=== PATIENT | female | born 1995 | race Caucasian/White ===

== ENCOUNTER 2017-04-22 22:44 | Emergency (ER) | payer OTHER ==
[~2017-04-22] VITALS: Ht 160 cm; Wt 63.5 kg
[2017-04-22 22:44] VITALS: BP 118/64
[~2017-04-22 22:44] MED LIST: CLEOCIN HCL150 MG PO; MACROBID 100 M100 M1 PO; NOHOMEMEDICATIONS; PRENATAL PO
[2017-04-22] MEDS ORDERED: PRENATAL PO (22:52)
[2017-04-22 23:29] LABS: URINE BILIRUBIN NEGATIVE (Negative); URINE BLOOD NEGATIVE (Negative); URINE COLOR YELLOW; URINE GLUCOSE-RANDOM* NEGATIVE (Negative); URINE KETONES NEGATIVE (Negative); URINE NITRITE NEGATIVE (Negative); URINE PROTEIN (DIPSTICK) TRACE (Negative); URINE SPECIFIC GRAVITY 1.015 (1.003-1.035)
[2017-04-22 23:37] LABS: BACTERIA >30 Many /HPF (None Seen); CASTS None Seen /LPF (None Seen); CRYSTALS None Seen /LPF (None Seen); SQUAMOUS 0-3 Few /LPF (0-3); URINE RBC 0-2 Rare /HPF (0-2); URINE WBC 6-15 Few /HPF (0-5)
== END 2017-04-23 02:00 | disposition left against medical advice (07) ==
LOC: ER 22:44
PROVIDERS: Nurse Practitioner Family
DX: O23.593 Infection of other part of genital tract in pregnancy, third trimester (principal); F32.9 Major depressive disorder, single episode, unspecified; F17.210 Nicotine dependence, cigarettes, uncomplicated; Z88.8 Allergy status to other drugs, medicaments and biological substances; Z3A.32 32 weeks gestation of pregnancy; Z88.0 Allergy status to penicillin